=== PATIENT | male | born 1965 | race Caucasian/White ===

== ENCOUNTER 2018-04-18 07:54 | Day surgery (SDC) | payer BC, OTHER ==
[~2018-04-18] VITALS: Ht 162.6 cm; Wt 98.0 kg
[2018-04-18] MEDS ORDERED: ATORVASTATIN (09:27)
[2018-04-18] MEDS ORDERED: LOSARTAN (09:27)
[2018-04-18] MEDS ORDERED: ASPIRIN (09:27)
[2018-04-18 09:28] VITALS: Ht 162.6 cm; Wt 98.0 kg
[2018-04-18 10:02] VITALS: BP 136/84; PULSE 67; RESP 18
--- NOTE | 2018-04-18 10:17 | PREAC ---
Date/Time of Note Date/Time of Note DATE: 04/18/18 TIME: 10:15 Anesthesia Eval and Record Evaluation Time Pre-Procedure Interview DATE: 04/18/18 TIME: 10:15 Age 52 Sex male NPO: 8 hrs Preoperative diagnosis screening colon Planned procedure colonoscopy Past Medical History Past Medical History: Includes GI: Obesity Surgery & Anesthesia Issues No known issue Meds Anticoagulation: No Beta Vidhi within 24 hr: No Reason Beta Vidhi not given: Pt. not on B-Vidhi Reported Medications [Aspirin] No Conflict Check 04/18/18 [Atorvastatin] No Conflict Check 04/18/18 [Losartan] No Conflict Check 04/18/18 Meds reviewed: Yes Allergies Coded Allergies: No Known Allergy (Unverified , 04/18/18) Allergies Reviewed: Yes Labs/Studies Labs Reviewed: Reviewed by anesthesiologist test: N/A Studies: ECG (na), CXR (na) Pre-procedure Exam Last vitals Vital Signs Date Temp Pulse Resp B/P (MAP) Pulse Ox O2 O2 Flow FiO2 Time Delivery Rate 04/18/18 98.0 67 18 136/84 97 Room Air 10:02 (101) Airway: Adequate mouth opening Mallampati: Mallampati II Teeth: Normal Lung: Normal Heart: Normal ASA Physical Status ASA physical status: 2 Emergency: None Planned Anesthetic General/MAC: MAC Pre-operative Attestations Prior to commencing anesthesia and surgery, the patient was re-evaluated, there was verification of: *The patient's identity *The results of appropriate recent lab work and preoperative vital signs *The above evaluation not changing prior to induction *Anesthetic plan, risk benefits, alternative and complications discussed with patient/family; questions answered; patient/family understands, accepts and wishes to proceed. JOSE C YAN MD Apr 18, 2018 10:17
[2018-04-18] MEDS ORDERED: PROPOFOL 40 ML ONE (10:20)
--- NOTE | 2018-04-18 10:52 | PAC ---
Date/Time of Note Date/Time of Note DATE: 04/18/18 TIME: 10:51 Post-Anesthesia Notes Post-Anesthesia Note Last documented vital signs Vital Signs Date Temp Pulse Resp B/P (MAP) Pulse Ox O2 O2 Flow FiO2 Time Delivery Rate 04/18/18 98.0 67 18 136/84 97 Room Air 10:02 (101) Activity: WNL Respiratory function: WNL Cardiovascular function: WNL Mental status: Baseline Pain reasonably controlled: Yes Hydration appropriate: Yes Nausea/Vomiting absent: Yes JOSE C YAN MD Apr 18, 2018 10:52
[2018-04-18 11:16] VITALS: BP 138/83; PULSE 66; RESP 18
--- NOTE | 2018-04-18 19:47 | CONS ---
DATE OF ADMISSION: 04/18/2018 DATE OF CONSULTATION: PATIENT NAME: MACK MOSELEY TYPE OF CONSULTATION: Preoperative gastroenterology. Dear Dr. Clarke: Thank you very much for this kind referral. HISTORY OF PRESENT ILLNESS: Mr. Mack Moseley is a 52-year-old male patient who has been referred to susie mendes for further evaluation of change in the bowel habit. No past history of colon neoplasm. The patie nt never got screening colonoscopy. His appetite has been good and he is not losing any weight. No upper abdominal pain, nausea or vomiting. He is on baby aspirin a day. No history of gallstones or liver disease. PAST MEDICAL HISTORY: He is hypertensive. Not a diabetic. No heart disease, lung problem or kidney disease. He has got hyperlipidemia. SOCIAL HISTORY: Nonsmoker. No alcohol abuse. FAMILY HISTORY: No family history of gastrointestinal tract neoplasm. ALLERGIES: NO DRUG ALLERGIES. MEDICATIONS: 1. Losartan. 2. Atorvastatin. 3. Aspirin 81 mg. PHYSICAL EXAMINATION: VITAL SIGNS: He is 5 feet, 3 inches tall and weighs 210 pounds. HEART: Normal heart sounds. LUNGS: Clear. ABDOMEN: Soft. No masses. Normal bowel sounds. NEUROLOGIC: Normal. IMPRESSION: 1. Change in the bowel habit. 2. The patient needs screening colonoscopy. 3. Hypertension. 4. Hyperlipidemia. 5. Obesity. 6. The patient is on baby aspirin a day. PLAN: 1. Screening colonoscopy. 2. Because of the obesity with a short thick neck, he needs monitored anesthesia care. The procedure and possible complications are well explained to the patient. The patient understands and consents to the procedure. I thank you once again. With warmest personal regards, Dictated By: MELI VALLEJO/ULI Conf#: [id number] DID#: [id number]
== END 2018-04-18 14:29 | disposition home or self-care (01) ==
LOC: GIL 07:54
PROVIDERS: ATTEND Internal Medicine Gastroenterology
DX: Z12.11 Encounter for screening for malignant neoplasm of colon (principal); K64.8 Other hemorrhoids; D12.5 Benign neoplasm of sigmoid colon; D12.3 Benign neoplasm of transverse colon; I10 Essential (primary) hypertension; E78.5 Hyperlipidemia, unspecified; E66.9 Obesity, unspecified; Z68.37 Body mass index [BMI] 37.0-37.9, adult
CPT/HCPCS: 88305